=== PATIENT | male | born 1990 | race African-American/Black ===

== ENCOUNTER 2016-11-24 06:11 | Emergency (ER) | payer SELFPAY ==
[~2016-11-24] VITALS: Ht 175.3 cm; Wt 75.0 kg
[2016-11-24 06:15] VITALS: TEMP 99.3
[2016-11-24 06:45] LABS: HEMATOCRIT 46.9 % (42.0-52.0); HEMOGLOBIN 16.8 g/dl (13.5-18.0); MEAN CELL VOLUME 83 fl (80.0-100.0); MEAN CORPUSCULAR HEMOGLOBIN 30 pg (27.0-31.0); MEAN CORPUSCULAR HGB CONC 36 g/dl (33.0-37.0); PLATELET COUNT 228 K/mm3 (130-400); RED BLOOD COUNT 5.65 M/mm3 (4.20-5.60); REDCELL DISTRIBUTION WIDTH-CV 12.7 % (11.5-14.5); WHITE BLOOD COUNT 10.5 K/mm3 (4.8-10.8)
[2016-11-24 06:51] LABS: ADD PATHOLOGY DIFF REVIEW NO
[2016-11-24 06:57] LABS: ADJUSTED CALCIUM 9.4 mg/dL (8.4-10.2); ALBUMIN 4.9 gm/dL (3.5-5.0); C-REACTIVE PROTEIN 2.2 mg/dL (0.0-0.9); CALCIUM 10.1 mg/dL (8.4-10.2); CREATININE, serum 0.96 mg/dL (0.66-1.25); POTASSIUM 3.4 mmol/L (3.4-5.0); TOTAL PROTEIN 8.6 gm/dL (6.4-8.2)
[2016-11-24 07:16] LABS: BAND 1 % (0-10); NEUTROPHILS 94 % (42.0-75.2); TOTAL CELLS COUNTED 100
[2016-11-24] MEDS ORDERED: ZOFRAN8 MG PO (07:18)
[2016-11-24] MEDS ORDERED: ULTRAM 50MG TAB50 MG PO (07:18)
[2016-11-24 10:18] VITALS: BP 129/71; PULSE 78
== END 2016-11-24 10:20 | disposition home or self-care (01) ==
LOC: COL.ER 06:11
PROVIDERS: Emergency Medicine
DX: R11.2 Nausea with vomiting, unspecified (principal); R19.7 Diarrhea, unspecified; R10.13 Epigastric pain
CPT/HCPCS: J2405; J2550; J7030